=== PATIENT | female | born 1970 | race Caucasian/White ===

== ENCOUNTER 2018-03-23 16:10 | Outpatient (CLI) | payer BC | END 2018-03-23 16:11 | disposition home or self-care (01) | LOC: BICMAMMO 16:10 | PROVIDERS: ATTEND Obstetrics & Gynecology | DX: Z12.31 Encounter for screening mammogram for malignant neoplasm of breast (principal) | CPT/HCPCS: 77063; 77067 ==

== ENCOUNTER 2019-02-21 15:15 | Outpatient (CLI) | payer BC ==
--- NOTE | 2019-02-21 17:41 | ULT ---
THYROID ULTRASOUND: INDICATION: Followup nodules. The patient is post right thyroidectomy. FINDINGS: The left lobe is homogeneous. There is an oblong-shaped relatively circumscribed isoechoic nodule mi d to upper left lobe measuring 1.8 x 0.8 x 1.3 cm today. This nodule has enlarged slightly since the prior exam at which time it measured approximately 0.6 x 1.4 cm. In the mid to lower pole of the left lobe today is seen a slightly heterogeneous isoechoic nodule fransico suring 1.0 x 1.1 x 1.6 cm. This nodule appears slightly different from the prior exam. It was descr ibed as cystic on the prior exam; however, a review of the prior study shows that the cyst was a comp onent of this larger nodule which has not significantly changed since size but has changed in charact er. No significant cystic component is seen today. Another tiny nodule measuring in the 6-8 mm range is identified in the medial lower pole. IMPRESSION: Slight enlargement of oblong-shaped nodule in the mid to upper pole of the left lobe. A lower pole n odule has changed in character today without significant change in size. POS: [facility]
== END 2019-02-21 15:16 | disposition home or self-care (01) ==
LOC: BICULT 15:15
PROVIDERS: ATTEND Physician Assistant
DX: E04.2 Nontoxic multinodular goiter (principal)
CPT/HCPCS: 76536

== ENCOUNTER 2019-03-13 12:48 | Day surgery (SDC) | payer BC ==
--- NOTE | 2019-03-13 16:47 | ULT ---
Sonographic guided fine needle aspiration left thyroid lobe mass x2. HISTORY: 2 dominant left thyroid lobe nodules. FINDINGS: After explaining the procedure and answering all questions, sonographic survey confirms hyp oechoic nodules within the left thyroid lobe. Sterile technique, buffered local anesthesia, sonographic guidance, and a medial approach were used t o carefully advance the tip of a 25-gauge needle into the oval mass at the superior pole of the left thyroid lobe. Tissue was submitted to pathology for processing. A total of 4 passes were made. A separate approach, also medial, was planned for the inferior pole nodule. Sterile technique, buffer ed local anesthesia, sonographic guidance, and a medial approach were used to advance a 25-gauge needle into the nodule at the inferior pole of the left thyroid lobe. Position was confirmed with son ography. A total of 4 passes were made, with the tissue submitted to pathology for processing. Postprocedure imaging shows no evidence of complication. Patient tolerated the procedure well and was dismissed in good condition. IMPRESSION: Technically successful sonographic guided FNA sampling of 2 separate left thyroid lobe ma sses. Pathology is pending.
== END 2019-03-13 14:30 | disposition home or self-care (01) ==
LOC: ULT 12:48
PROVIDERS: ATTEND Otolaryngology Plastic Surgery within the Head & Neck
PROC: 0GBJ3ZX Excision of Thyroid Gland Isthmus, Percutaneous Approach, Diagnostic (ICD-10-PCS; principal; 2019-03-13)
PROC: BG44ZZZ Ultrasonography of Thyroid Gland (ICD-10-PCS; principal; 2019-03-13)
DX: E04.1 Nontoxic single thyroid nodule (principal); E89.0 Postprocedural hypothyroidism; Z79.899 Other long term (current) drug therapy; Z87.891 Personal history of nicotine dependence
CPT/HCPCS: 60100; 76942; 88173

== ENCOUNTER 2021-05-31 14:48 | Outpatient (CLI) | payer BC | END 2021-05-31 14:49 | disposition home or self-care (01) | LOC: BICMAMMO 14:48 | PROVIDERS: ATTEND Advanced Practice Midwife | DX: N63.15 Unspecified lump in the right breast, overlapping quadrants (principal); N63.21 Unspecified lump in the left breast, upper outer quadrant | CPT/HCPCS: 77066; G0279 ==

== ENCOUNTER 2021-10-07 08:59 | Outpatient (CLI) | payer BC ==
[2021-10-07] MEDS ORDERED: Magnevist 469MG/ML 20 ML VIAL ONE (11:14)
== END 2021-10-07 09:00 | disposition home or self-care (01) ==
LOC: TBSIIMAG 08:59
PROVIDERS: ATTEND Family Medicine
DX: H54.62 Unqualified visual loss, left eye, normal vision right eye (principal)
CPT/HCPCS: 70553

== ENCOUNTER 2022-02-07 12:18 | Emergency (ER) | payer BC ==
[2022-02-07] MEDS ORDERED: Fentanyl 100 MCG/2 ML VIAL ONE (14:57)
[2022-02-07] MEDS ORDERED: Lorazepam 2 MG/ML VIAL ONE (14:57)
[2022-02-07] MEDS ORDERED: Ketorolac Tromethamine 30 MG/ML VIAL ONE (14:57)
== END 2022-02-07 15:41 | disposition home or self-care (01) ==
LOC: ERS 12:18
DX: S42.212A Unspecified displaced fracture of surgical neck of left humerus, initial encounter for closed fracture (principal); S42.202A Unspecified fracture of upper end of left humerus, initial encounter for closed fracture; I10 Essential (primary) hypertension; E03.9 Hypothyroidism, unspecified; E78.5 Hyperlipidemia, unspecified; W19.XXXA Unspecified fall, initial encounter
CPT/HCPCS: 96374; 96375; J1885; J2060; J3010

== ENCOUNTER 2022-04-21 13:47 | Observation (INO) | payer BC ==
[2022-04-21 14:40] LABS: #Eosinphils 0.1 thou/uL (0.0-0.7); #Lymphocytes 2.4 thou/uL (1.20-3.40); #Monocytes 0.5 thou/uL (0.11-0.59); #Neutrophils 6.1 thou/uL (1.40-6.50); %Basophils 0.1 % (0.0-1.0); %Eosinophils 0.9 % (0.0-10.0); %Lymphocytes 26.2 % (21.0-51.0); %Monocytes 5.8 % (0.0-10.0); Mean Corpuscular HGB CONC 33.7 g/dL (32.0-36.0); Mean Corpuscular Hemoglobin 30.8 pg (27.0-31.0); Mean Corpuscular Volume 91.4 fL (78.0-98.0); Mean Platelet Volume 7.9 fL (7.4-10.4); Platelet Count 225 thou/uL (130-400); RBC Distribution Width 11.9 % (11.5-14.5); Red Blood Cell (RBC) Count 4.54 mill/uL (4.20-5.40); White Blood Cell (WBC) Count 9.1 thou/uL (4.8-10.8)
[2022-04-21 15:06] LABS: ALT (SGPT) 21 U/L (8-55); AST (SGOT) 16 U/L (5-34); Albumin 4.7 g/dL (3.5-5.0); Alkaline Phosphatase 60 U/L (40-110); Anion Gap 14 mmol/L (10-20); BUN (Urea Nitrogen) 13 mg/dL (7.0-18.7); Bilirubin, Total 0.4 mg/dL (0.2-1.2); Calc. Creatinine Clearance 0 mL/min (70-130); Calcium 10.2 mg/dL (7.8-10.44); Carbon Dioxide 21 mmol/L (22-29); Chloride 107 mmol/L (98-107); Estimated GFR 67; Glucose 94 mg/dL (70-105); Lipase 49 U/L (8-78); Potassium 4.1 mmol/L (3.5-5.1); Protein, Total 7.7 g/dL (6.0-8.3); Sodium 138 mmol/L (136-145)
[2022-04-21] MEDS ORDERED: Aspirin Chewable 81 MG TAB ONE (15:54)
[2022-04-21] MEDS ORDERED: Iopamidol-370 76% 500 ML 1 ML ONE (16:03)
[2022-04-21 16:20] LABS: BHCG - Serum Negative (NEGATIVE); Pregs Control Background? CLEAR/WHITE (CLR/WHITE); Pregs Control Bar Appear? YES (CONTROL BAR)
[2022-04-21] MEDS ORDERED: Acetaminophen 325 MG TAB PO PRN (17:47)
[2022-04-21] MEDS ORDERED: Ondansetron ODT 4 MG TAB PO PRN (17:47)
[2022-04-21 18:48] LABS: Magnesium 1.8 mg/dL (1.6-2.6)
[2022-04-21 18:54] LABS: Troponin I 0.226 ng/mL (< 0.028)
[2022-04-21 20:30] LABS: SARS-CoV-2 NAA Rapid Test Not Detected (NotDetected)
[2022-04-21 21:47] LABS: Troponin I 0.207 ng/mL (< 0.028)
[2022-04-21 22:47] VITALS: BMI 27.8
[2022-04-22] MEDS ORDERED: Electrolyte Replacement Protocol 1 EACH FS SCH (08:30)
[2022-04-22] MEDS ORDERED: Magnesium 2 GM/50 ML(in water) 2 GM in Premix Bag 1 BAG IVPB SCH (08:45)
[2022-04-22] MEDS ORDERED: Enoxaparin Sodium 40 MG/0.4 ML SYRINGE SC SCH (09:00)
[2022-04-22] MEDS: Aspirin 81 mg Enteric Coated Tablet PO SCH (09:26)
[2022-04-22 13:39] LABS: Magnesium 2.6 mg/dL (1.6-2.6)
[2022-04-23] MEDS ORDERED: ADENOSINE 60 MG/20 ML VIAL ONE (08:23)
[2022-04-23] MEDS ORDERED: Morphine 4 MG/ML VIAL SLOW IVP PRN (11:50)
[2022-04-23] MEDS: Aspirin 81 mg Enteric Coated Tablet PO SCH (14:18)
[2022-04-23 15:42] VITALS: BP 128/80; TEMP 97.7
== END 2022-04-23 16:19 | disposition home or self-care (01) ==
LOC: ERS 13:47 → ERHOLD 16:58 → 2SW 22:27
PROVIDERS: ADMIT Family Medicine; ATTEND Family Medicine
DX: R00.2 Palpitations (principal); R07.9 Chest pain, unspecified; R00.0 Tachycardia, unspecified; R77.8 Other specified abnormalities of plasma proteins; I10 Essential (primary) hypertension; E78.5 Hyperlipidemia, unspecified; E04.1 Nontoxic single thyroid nodule; I08.8 Other rheumatic multiple valve diseases; E83.42 Hypomagnesemia; E89.0 Postprocedural hypothyroidism; Z79.899 Other long term (current) drug therapy; Z20.822 Contact with and (suspected) exposure to COVID-19
CPT/HCPCS: 36415; 71045; 71275; 78452; 80053; 82553; 83690; 83735; 84443; 84484; 84703; 85025; 93005; 93010; 93017; 93306; A9500; J0153; J1650; J2270; J3475; Q9967

== ENCOUNTER 2022-04-28 09:40 | Outpatient (CLI) | payer BC | END 2022-04-28 09:41 | disposition home or self-care (01) | LOC: SCSMRI 09:40 | PROVIDERS: ATTEND Physician Assistant Surgical | DX: S46.012D Strain of muscle(s) and tendon(s) of the rotator cuff of left shoulder, subsequent encounter (principal) ==

== ENCOUNTER 2022-06-08 08:13 | Outpatient (CLI) | payer BC | END 2022-06-08 08:14 | disposition home or self-care (01) | LOC: BICMAMMO 08:13 | PROVIDERS: ATTEND Family Medicine | DX: Z13.820 Encounter for screening for osteoporosis (principal); M85.851 Other specified disorders of bone density and structure, right thigh; M85.852 Other specified disorders of bone density and structure, left thigh | CPT/HCPCS: 77080 ==

== ENCOUNTER 2024-09-05 09:44 | Outpatient (CLI) | payer BC | END 2024-09-05 09:45 | disposition home or self-care (01) | LOC: BICRAD 09:44 | PROVIDERS: ATTEND Family Medicine | DX: M79.672 Pain in left foot (principal); M77.32 Calcaneal spur, left foot ==